=== PATIENT | female | born 1995 | race Caucasian/White ===

== ENCOUNTER 2019-03-16 09:48 | Emergency (ER) | payer BC, MEDICAID ==
[~2019-03-16] VITALS: Ht 157.5 cm; Wt 72.0 kg
[2019-03-16] MEDS ORDERED: ACETAMINOPHEN 325MG TABLET PO ONE (11:00)
[2019-03-16 12:38] VITALS: BP 117/69
== END 2019-03-16 12:39 | disposition home or self-care (01) ==
LOC: ER 09:48
DX: S00.83XA Contusion of other part of head, initial encounter (principal); Z98.890 Other specified postprocedural states; Z82.5 Family history of asthma and other chronic lower respiratory diseases; Y04.0XXA Assault by unarmed brawl or fight, initial encounter; Y93.89 Activity, other specified; Y92.89 Other specified places as the place of occurrence of the external cause; Y99.8 Other external cause status
CPT/HCPCS: 70486; 81025; 99284

== ENCOUNTER 2019-08-22 00:08 | Emergency (ER) | payer MEDICAID ==
[~2019-08-22] VITALS: Ht 157.5 cm; Wt 82.0 kg
[2019-08-22] MEDS ORDERED: ACETAMINOPHEN 325MG TABLET PO PRN (04:00)
[2019-08-22 04:26] LABS: CHLORIDE 106 mEq/L (98-107)
[2019-08-22 04:29] LABS: CLARITY URINE CLOUDY (CLEAR); COLOR URINE YELLOW (YELLOW); KETONES URINE NEGATIVE (NEGATIVE); LEUKOCYTE ESTERASE URINE TRACE (NEGATIVE); NITRITE URINE NEGATIVE (NEGATIVE); OCCULT BLOOD URINE NEGATIVE (NEGATIVE); PROTEIN URINE NEGATIVE (NEGATIVE); SPECIFIC GRAVITY URINE 1.026 (1.005-1.030); UROBILINOGEN URINE 0.2 E.U./dL (0.2-1.0)
[2019-08-22 04:33] LABS: BASOPHILS % 0.2 % (0.0-2.0); HEMATOCRIT. 39.2 % (36.0-48.0); HEMOGLOBIN. 13.4 g/dL (12.0-16.0); LYMPHOCYTES % 8.6 % (20.0-50.0); MEAN CORPUSCULAR HEMOGLOBIN 29.8 pg (28.0-32.0); MEAN CORPUSCULAR VOLUME 87.1 fL (81.0-99.0); MEAN PLATELET VOLUME 9.3 fl (7.4-10.4); MONOCYTES % 5.4 % (2.0-8.0); NEUTROPHILS % 85.8 % (40.0-76.0); PLATELET 358 x1000/uL (130-400)
[2019-08-22 04:37] LABS: B-HCG QUANTITATIVE 31 mIU/mL (<3)
[2019-08-22 06:28] VITALS: BP 90/60
== END 2019-08-22 06:30 | disposition home or self-care (01) ==
LOC: ER 00:08
DX: O26.891 Other specified pregnancy related conditions, first trimester (principal); O23.31 Infections of other parts of urinary tract in pregnancy, first trimester; Z3A.01 Less than 8 weeks gestation of pregnancy; Z98.890 Other specified postprocedural states
CPT/HCPCS: 36415; 76801; 80053; 81003; 81025; 84702; 85025; 86850; 86900; 99284

== ENCOUNTER 2019-09-11 08:42 | Emergency (ER) | payer MEDICAID ==
[~2019-09-11] VITALS: Ht 157.5 cm; Wt 81.0 kg
[2019-09-11 09:06] VITALS: BP 116/70
[2019-09-11] MEDS ORDERED: prenatal vitamins (09:06)
[2019-09-11] MEDS ORDERED: CETI-114 PO (09:06)
== END 2019-09-11 16:50 | disposition left against medical advice (07) ==
LOC: ER 08:51
DX: Z53.21 Procedure and treatment not carried out due to patient leaving prior to being seen by health care provider (principal)

== ENCOUNTER 2019-10-04 22:58 | Emergency (ER) | payer MEDICAID ==
[~2019-10-04] VITALS: Ht 170.2 cm; Wt 68.0 kg
[~2019-10-04 22:58] MED LIST: CETI-114 PO; prenatal vitamins
[2019-10-05 00:23] LABS: CHLORIDE 104 mEq/L (98-107)
[2019-10-05 00:24] LABS: BASOPHILS % 0.3 % (0.0-2.0); EOSINOPHILS % 0.4 % (0.0-5.0); HEMATOCRIT. 38.1 % (36.0-48.0); HEMOGLOBIN. 13.1 g/dL (12.0-16.0); LYMPHOCYTES % 8.8 % (20.0-50.0); MEAN CORPUSCULAR HEMOGLOBIN 30.3 pg (28.0-32.0); MEAN PLATELET VOLUME 9.7 fl (7.4-10.4); MONOCYTES % 4.6 % (2.0-8.0); NEUTROPHILS % 85.9 % (40.0-76.0); PLATELET 269 x1000/uL (130-400); RED BLOOD CELL COUNT 4.33 mill/uL (4.2-5.4); RED CELL DISTRIBUTION WIDTH 13.6 % (11.6-14.6)
[2019-10-05 00:30] LABS: CLARITY URINE TURBID (CLEAR); COLOR URINE RED (YELLOW); KETONES URINE NEGATIVE (NEGATIVE); LEUKOCYTE ESTERASE URINE 2+ (NEGATIVE); NITRITE URINE POSITIVE (NEGATIVE); OCCULT BLOOD URINE 3+ (NEGATIVE); PROTEIN URINE 2+ (NEGATIVE); SPECIFIC GRAVITY URINE 1.019 (1.005-1.030); UROBILINOGEN URINE 0.2 E.U./dL (0.2-1.0)
[2019-10-05 00:47] LABS: B-HCG QUANTITATIVE 63075 mIU/mL (<3)
[2019-10-05 02:33] VITALS: BP 103/59
== END 2019-10-05 02:56 | disposition home or self-care (01) ==
LOC: ER 23:03
DX: O20.0 Threatened abortion (principal); Z3A.10 10 weeks gestation of pregnancy; O99.511 Diseases of the respiratory system complicating pregnancy, first trimester
CPT/HCPCS: 36415; 76801; 80053; 81003; 81025; 84702; 85025; 86850; 86900; 99284

== ENCOUNTER 2020-02-03 16:05 | Observation (INO) | payer MEDICAID | END 2020-02-03 16:35 | disposition home or self-care (01) | LOC: 8 EST LDRP 16:05 | PROVIDERS: ADMIT Obstetrics & Gynecology; ATTEND Obstetrics & Gynecology | DX: O36.8130 Decreased fetal movements, third trimester, not applicable or unspecified (principal); Z3A.28 28 weeks gestation of pregnancy | CPT/HCPCS: 59025; G0378; 99281 ==